=== PATIENT | female | born 1965 | race Caucasian/White ===

== ENCOUNTER 2018-02-16 01:39 | Emergency (ER) | payer MEDICAID ==
[2018-02-16] MEDS ORDERED: Sodium Chloride 0.9% 10 ML Syringe FLUSH PRN (02:35)
[2018-02-16] MEDS ORDERED: HYDROmorphone 2 MG/ML SDV IVPUSH ONE (02:39)
[2018-02-16] MEDS ORDERED: Sodium Chloride 0.9% 1,000 ML IV SCH (02:45)
--- NOTE | 2018-02-16 02:50 | EDM.PDOC ---
ED HPI GENERAL MEDICAL PROBLEM - General Chief Complaint: Lower Extremity Injury/Pain Stated Complaint: FALL Time Seen by Provider: 02/16/18 02:24 Source of Information: Reports: Patient, Family History Limitations: Reports: No Limitations - History of Present Illness INITIAL COMMENTS - FREE TEXT/NARRATIVE: Melissa Escoto comes to [facility] ED by POV with an injury to L hip that occurred with a fall outside about 10:00 pm last evening. Her boots became tangled in lacing that precipitated the fall onto her L hip. There was no LOC. Her spouse carried her into the house, and eventually brought to the ED for assessment this early am. X rays confirm a femoral neck fx of L hip. An IV with NS was inserted to begin hydration, and Dilaudid 2 mg IV administered for pain managment. Orthopedic consultation will be obtained in [place] for managment. left hip Pain Score (Numeric/FACES): 22 - Related Data Allergies Allergy/AdvReac Type Severity Reaction Status Date / Time No Known Allergies Allergy Verified 02/16/18 01:56 Home Meds: Home Meds NK [No Known Home Meds] 02/16/18 [History] Past Medical History Respiratory History: Reports: COPD - Past Surgical History HEENT Surgical History: Reports: Tonsillectomy Female Surgical History: Reports: Hysterectomy Social & Family History - Tobacco Use Smoking Status *Q: Current Every Day Smoker Years of Tobacco use: 40 Packs/Tins Daily: 1 - Recreational Drug Use Recreational Drug Use: No Review of Systems - Review of Systems Review Of Systems: ROS reveals no pertinent complaints other than HPI. ED EXAM, GENERAL - Physical Exam Exam: See Below Exam Limited By: Physical Impairment General Appearance: Alert, WD/WN, Moderate Distress, Thin Eye Exam: Bilateral Eye: EOMI, Normal Inspection, PERRL Ears: Normal External Exam Nose: Normal Inspection Throat/Mouth: Normal Inspection, Normal Oropharynx, No Airway Compromise Head: Atraumatic, Normocephalic Neck: Normal Inspection Respiratory/Chest: Lungs Clear, Normal Breath Sounds, Chest Non-Tender Cardiovascular: Regular Rate, Rhythm, No Edema, No JVD, No Murmur GI/Abdominal: Normal Bowel Sounds, Soft, Non-Tender, No Organomegaly, No Distention, No Mass (Female) Exam: Deferred Rectal (Female) Exam: Deferred Back Exam: Normal Inspection Extremities: Leg Pain (Left leg at hip with shortening and external rotation), Limited Range of Motion (left leg) Neurological: Alert, Oriented, CN II-XII Intact, Normal Cognition, No Motor/ Sensory Deficits Psychiatric: Normal Affect, Anxious Skin Exam: Warm, Dry, Intact, Normal Color Lymphatic: No Adenopathy Course - Vital Signs Text/Narrative:: Case was discussed with Dr Luong, hospitalist at [facility], and she will be transferred for orthopedic managment. Last Recorded V/S: Last Vital Signs Temp 36.6 C 02/16/18 01:40 Pulse 93 02/16/18 02:45 Resp 16 02/16/18 02:45 BP 140/88 02/16/18 02:45 Pulse Ox 100 02/16/18 02:45 - Orders/Labs/Meds Orders: Active Orders 24 hr Category Date Time Status Insert Urinary Catheter [OM.PC] Q24H Care 02/16/18 02:45 Ordered Urinary Catheter Assessment [RC] QSHIFT Care 02/16/18 02:40 Ordered Hip Min 2V or 3V w Pelvis Lt [CR] Stat Exams 02/16/18 01:43 Taken BASIC METABOLIC PANEL,BMP [CHEM] Stat Lab 02/16/18 02:39 Ordered CBC WITH AUTO DIFF [HEME] Stat Lab 02/16/18 02:39 Ordered Sodium Chloride 0.9% [Normal Saline] 1,000 ml Med 02/16/18 02:45 Ordered IV ASDIRECTED Sodium Chloride 0.9% [Saline Flush] Med 02/16/18 02:35 Ordered 10 ml FLUSH ASDIRECTED PRN Peripheral IV Insertion Adult [OM.PC] Routine Oth 02/16/18 02:35 Ordered Medication Orders Sodium Chloride (Normal Saline) 1,000 mls @ 999 mls/hr IV ASDIRECTED TOSHIA Last Admin: 02/16/18 02:40 Dose: 999 mls/hr Sodium Chloride (Saline Flush) 10 ml FLUSH ASDIRECTED PRN PRN Reason: Keep Vein Open Last Admin: 02/16/18 02:40 Dose: 10 ml Meds: Medications Generic Name Dose Route Start Last Admin Trade Name Freq PRN Reason Stop Dose Admin Sodium Chloride 1,000 mls @ 999 mls/hr 02/16/18 02:45 02/16/18 02:40 Normal Saline IV 999 mls/hr ASDIRECTED TOSHIA Administration Sodium Chloride 10 ml 02/16/18 02:35 02/16/18 02:40 Saline Flush FLUSH 10 ml ASDIRECTED PRN Administration Keep Vein Open Discontinued Medications Generic Name Dose Route Start Last Admin Trade Name Anitha PRN Reason Stop Dose Admin Hydromorphone HCl 2 mg 02/16/18 02:39 02/16/18 02:49 Dilaudid IVPUSH 02/16/18 02:40 2 mg ONETIME ONE Administration Departure - Departure Time of Disposition: 03:21 Disposition: DC/Tfer to Other 70 Condition: Fair Clinical Impression: Fracture of hip, left, closed Qualifiers: Encounter type: initial encounter Qualified Code(s): S72.002A - Fracture of unspecified part of neck of left femur, initial encounter for closed fracture - Discharge Information *PRESCRIPTION DRUG MONITORING PROGRAM REVIEWED*: Not Applicable *COPY OF PRESCRIPTION DRUG MONITORING REPORT IN PATIENT JUNIE: Not Applicable Referrals: PCP,Not In Area [Primary Care Provider] - Forms: ED Department Discharge - Problem List & Annotations (1) Fracture of hip, left, closed SNOMED Code(s): 401339160 Code(s): S72.002A - FRACTURE OF UNSP PART OF NECK OF LEFT FEMUR, INIT Status: Acute Current Visit: Yes Annotation/Comment:: Case discussed with hospitalist at [facility], and Melissa will be transferred by ground ambulance for orthopedic managment. Qualifiers: Encounter type: initial encounter Qualified Code(s): S72.002A - Fracture of unspecified part of neck of left femur, initial encounter for closed fracture - Problem List Review Problem List Initiated/Reviewed/Updated: Yes - My Orders Last 24 Hours: My Active Orders 02/16/18 01:43 Hip Min 2V or 3V w Pelvis Lt [CR] Stat 02/16/18 02:35 Sodium Chloride 0.9% [Saline Flush] 10 ml FLUSH ASDIRECTED PRN Peripheral IV Insertion Adult [OM.PC] Routine 02/16/18 02:39 BASIC METABOLIC PANEL,BMP [CHEM] Stat CBC WITH AUTO DIFF [HEME] Stat 02/16/18 02:40 Urinary Catheter Assessment [RC] QSHIFT 02/16/18 02:45 Insert Urinary Catheter [OM.PC] Q24H Sodium Chloride 0.9% [Normal Saline] 1,000 ml IV ASDIRECTED - Assessment/Plan Last 24 Hours: My Active Orders 02/16/18 01:43 Hip Min 2V or 3V w Pelvis Lt [CR] Stat 02/16/18 02:35 Sodium Chloride 0.9% [Saline Flush] 10 ml FLUSH ASDIRECTED PRN Peripheral IV Insertion Adult [OM.PC] Routine 02/16/18 02:39 BASIC METABOLIC PANEL,BMP [CHEM] Stat CBC WITH AUTO DIFF [HEME] Stat 02/16/18 02:40 Urinary Catheter Assessment [RC] QSHIFT 02/16/18 02:45 Insert Urinary Catheter [OM.PC] Q24H Sodium Chloride 0.9% [Normal Saline] 1,000 ml IV ASDIRECTED Plan: Follow up with PCP.
[2018-02-16] MEDS ORDERED: Dextrose 5%-Lactated Ringers 1,000 ML IV SCH (03:30)
--- NOTE | 2018-02-16 15:22 | CR ---
INDICATION: Fall, pain. PELVIS WITH LEFT HIP: Frontal view of the pelvis was obtained slightly oblique to the right with AP and lateral views of the left hip revealing posterior angulation at the fracture site of the femoral neck, which extends from the subcapital area into the neck to a point proximal to the intertrochanteric area. Cranial offset of the distal fracture fragment is noted of 1.5 cm approximately. There may also be some lateral angulation at the fracture site. The hip joints appeared otherwise intact bilaterally. Sacroiliac joints were intact. Bone density appeared to be normal. IMPRESSION: Femoral neck fracture with deformity on the left. MTDD
== END 2018-02-16 03:55 | disposition other institution (70) ==
LOC: FB.ED 01:39
DX: S72.002A Fracture of unspecified part of neck of left femur, initial encounter for closed fracture (principal); J44.9 Chronic obstructive pulmonary disease, unspecified; F17.210 Nicotine dependence, cigarettes, uncomplicated; W19.XXXA Unspecified fall, initial encounter
CPT/HCPCS: 36415; 51702; 73502; 80048; 85025; 96361; 96374; 99285; J1170; J7030; J7042; J7050